=== PATIENT | male | born 1955 | race Caucasian/White ===

== ENCOUNTER → 2024-12-25 | Outpatient (CLI) | payer MEDICARE, SELFPAY ==
--- NOTE | 2024-12-25 15:35 | CT_ITS ---
PROCEDURE: LOW DOSE CT LUNG SCREENING 12/25/2024 REASON FOR EXAM: PERSONAL HX OF NICOTINE DEPENDENCE TECHNIQUE: LOW DOSE CT LUNG SCREENING Coronal and Sagittal reconstruction series were provided. One or more dose reduction techniques were used (e.g., Automated exposure control, adjustment of the mA and/or kV according to patient size, use of iterative reconstruction technique). REFERENCE LINK: [employer] Lung-RADS RADIATION DOSE SUMMARY: CTDlvol: mGy DLP:mGycm COMPARISON: none FINDINGS: Bilateral upper lung lobes apical segments reticulations and nodular infiltrates 1 mm in diameter. Bilateral pulmonary predominantly upper lobar paraseptal and centrilobular emphysema with right upper lobe bleb. No obvious pulmonary masses or consolidations. No pathologically enlarged hilar or mediastinal lymph nodes. Patent tracheo-bronchial tree. No obvious cardiac abnormalities detected. No pleural or pericardial effusion. Vascular atheromatous calcifications Intact bony thoracic cage with no fractures. No obvious chest wall masses. CT/Low Dose CT Lung Screening IMPRESSION: Bilateral upper lung lobes reticulations and nodular infiltrates. Bilateral pulmonary paraseptal and centrilobular emphysema with right upper lob e bleb. Findings are suggestive of (lung rads 2). Advise annual screening. Reading Location: [facility]
== END | disposition home or self-care (01) ==
LOC: CT 15:30
PROVIDERS: PCP Physician Assistant; Referring Provider Internal Medicine Pulmonary Disease; Visit Provider Internal Medicine Pulmonary Disease
DX: Z12.2 Encounter for screening for malignant neoplasm of respiratory organs (principal); Z87.891 Personal history of nicotine dependence
CPT/HCPCS: 71271